=== PATIENT | female | born 1980 | race African-American/Black ===

== ENCOUNTER 2017-08-23 12:26 | Emergency (ER) | payer OTHER ==
[~2017-08-23] VITALS: Ht 162.6 cm; Wt 53.5 kg
[~2017-08-23 12:26] MED LIST: DOXYCYCLINE 10100 MG PO; IBUPROFEN 600600 M1 PO; PREDNISONE 20 M20 MG PO; ROBITUSSIN DM118 ML PO; SERTRALINE HCL50 MG PO
[2017-08-23 15:39] VITALS: BP 107/66
[2017-08-23] MEDS ORDERED: KEFLEX500 M1 PO (15:40)
[2017-08-23] MEDS ORDERED: NAPROSYN500 MG PO (15:40)
== END 2017-08-23 15:46 | disposition home or self-care (01) ==
LOC: ER 12:26
DX: J34.0 Abscess, furuncle and carbuncle of nose (principal); L72.3 Sebaceous cyst; J45.909 Unspecified asthma, uncomplicated; F32.9 Major depressive disorder, single episode, unspecified; Z90.710 Acquired absence of both cervix and uterus

== ENCOUNTER 2018-07-06 09:37 | Emergency (ER) | payer OTHER ==
[~2018-07-06] VITALS: Ht 162.6 cm; Wt 54.4 kg
[~2018-07-06 09:37] MED LIST changes: +KEFLEX500 M1 PO; +NAPROSYN500 MG PO
[2018-07-06 10:03] LABS: HEMATOCRIT 37.6 % (37.0-47.0); HEMOGLOBIN 12.3 gm/dL (12.0-15.0); MCHC 32.6 g/dL (28.0-37.0); MCV 76.7 fL (80.0-100.0); RBC 4.91 mil/uL (4.20-5.00); RDW 15.4 % (10.5-14.5); WBC 6.2 thou/uL (4.0-11.0)
[2018-07-06 10:15] LABS: ANION GAP 10 mmol/L (7-16); BUN 17 mg/dL (7-18); CALCIUM 9.5 mg/dL (8.5-10.1); CHLORIDE 103 mmol/L (98-107); CO2 25 mmol/L (21-32); CREATININE 0.9 mg/dL (0.6-1.0); GLUCOSE 90 mg/dL (74-106); POTASSIUM 4.3 mmol/L (3.5-5.1); SODIUM 138 mmol/L (136-145)
[2018-07-06 10:24] LABS: TROPONIN-I <0.06 ng/mL (<0.06)
[2018-07-06] MEDS ORDERED: NORCO 5-325 TA1 EACH PO (11:14)
[2018-07-06 11:33] VITALS: BP 104/61
--- NOTE | 2018-07-06 12:23 | EKG ---
[address] [address] ELECTROCARDIOGRAM REPORT Name: EVANS NAVAS Room #: DEP [facility]#: [id number] ������������������ Admission: 07/06/18 ������������������ Attend Phys: Discharge: 07/06/18 ������������������ Date of : 84 Report #: [id number] ����������������������������������������������������������������� [id number] THIS REPORT FOR: //name// [facility] ED Test Date: 2018-07-06 Test Time: 09:59:20 Pat Name: KINAJAXSONDALE NAVAS Department: Room: Gender: F Private Tutor: MARSHAL : 1980 Requested By: Rusty German Order Number: [id number] MD: Chris Martin Measurements Intervals [place] Rate: 63 P: 32 MN: 158 QRS: 56 QRSD: 96 T: 39 QT: 413 QTc: 423 Interpretive Statements Sinus rhythm RSR' in V1 or V2, probably normal variant Nonspecific ST-T wave changes Compared to ECG 11/07/2015 10:41:21 RSR' in V1 or V2 now present Electronically Signed On 07-06-2018 12:23:04 [employer] by Chris Martin [email or web address] ��������������������������������������������� <ELECTRONICALLY SIGNED> ���������������������������������������� By: Chris Martin MD ��������������������������������������������� 07/06/18 1223 0959 [id number] Chris Martin MD /EPI
== END 2018-07-06 11:35 | disposition home or self-care (01) ==
LOC: ER 09:37
PROVIDERS: Physician Assistant
DX: M54.12 Radiculopathy, cervical region (principal); M25.512 Pain in left shoulder; J45.909 Unspecified asthma, uncomplicated; F32.9 Major depressive disorder, single episode, unspecified; Z90.710 Acquired absence of both cervix and uterus

== ENCOUNTER 2019-11-24 08:54 | Emergency (ER) | payer OTHER ==
[~2019-11-24] VITALS: Ht 162.6 cm; Wt 54.4 kg
[~2019-11-24 08:54] MED LIST changes: +NORCO 5-325 TA1 EACH PO
[2019-11-24 10:44] LABS: ABSOLUTE NEUTROPHILS 2.2 thou/uL (1.4-8.2); BASOPHILS 1.8 % (0.0-2.0); EOSINOPHILS 3.5 % (0.0-3.0); HEMATOCRIT 36.2 % (37.0-47.0); HEMOGLOBIN 12.2 gm/dL (12.0-15.0); LYMPHOCYTES 39.3 % (24.0-44.0); MCH 26.8 pg (26.0-34.0); MCHC 33.8 g/dL (28.0-37.0); MCV 79.3 fL (80.0-100.0); MONOCYTES 8.4 % (1.0-8.0); PLATELET COUNT 176 thou/uL (150-400); RBC 4.57 mil/uL (4.20-5.00); RDW 15.3 % (10.5-14.5); WBC 4.8 thou/uL (4.0-11.0)
[2019-11-24 11:02] LABS: CALCIUM 8.8 mg/dL (8.5-10.1); CREATININE 0.7 mg/dL (0.6-1.0); POTASSIUM 5.6 mmol/L (3.5-5.1)
[2019-11-24] MEDS ORDERED: NAPROSYN500 MG PO (12:05)
[2019-11-24 12:28] VITALS: BP 134/86
== END 2019-11-24 12:31 | disposition home or self-care (01) ==
LOC: ER 08:54
PROVIDERS: Emergency Medicine
DX: R59.9 Enlarged lymph nodes, unspecified (principal); J45.909 Unspecified asthma, uncomplicated; Z90.710 Acquired absence of both cervix and uterus

== ENCOUNTER 2020-01-05 12:08 | Emergency (ER) | payer OTHER ==
[~2020-01-05] VITALS: Ht 162.6 cm; Wt 54.4 kg
[2020-01-05 13:03] LABS: ABSOLUTE NEUTROPHILS 4.9 thou/uL (1.4-8.2); BASOPHILS 0.8 % (0.0-2.0); HEMATOCRIT 35.4 % (37.0-47.0); HEMOGLOBIN 11.7 gm/dL (12.0-15.0); LYMPHOCYTES 29.4 % (24.0-44.0); MCH 25.7 pg (26.0-34.0); MCV 77.8 fL (80.0-100.0); MONOCYTES 4.8 % (1.0-8.0); PLATELET COUNT 166 thou/uL (150-400); RBC 4.54 mil/uL (4.20-5.00); RDW 15.1 % (10.5-14.5); WBC 7.7 thou/uL (4.0-11.0)
[2020-01-05 13:20] LABS: CALCIUM 9.3 mg/dL (8.5-10.1); CREATININE 0.8 mg/dL (0.6-1.0)
[2020-01-05 13:22] LABS: APTT 27.1 Seconds (24.5-32.8); PROTIME 10.4 Seconds (9.3-11.4)
[2020-01-05 14:13] VITALS: BP 141/87
[2020-01-05] MEDS ORDERED: NAPROSYN500 MG PO (14:16)
== END 2020-01-05 14:13 | disposition home or self-care (01) ==
LOC: ER 12:08
PROVIDERS: Physician Assistant
DX: S80.12XA Contusion of left lower leg, initial encounter (principal); S80.11XA Contusion of right lower leg, initial encounter; S40.022A Contusion of left upper arm, initial encounter; S40.021A Contusion of right upper arm, initial encounter; M25.562 Pain in left knee; M25.561 Pain in right knee; J45.909 Unspecified asthma, uncomplicated; Z90.710 Acquired absence of both cervix and uterus; X58.XXXA Exposure to other specified factors, initial encounter; Y93.89 Activity, other specified; Y92.89 Other specified places as the place of occurrence of the external cause; Y99.8 Other external cause status